=== PATIENT | female | born 1980 | race Two or more races ===

== ENCOUNTER 2016-05-19 23:14 | Emergency (ER) | payer OTHER ==
--- NOTE | ~2016-05-19 | CT4 ---
[facility]. [facility] A Service of [facility] & [facility] RADIOLOGY TEXT RESULTS PATIENT: AN LEYVA LOCATION: SED : 76 UNIT #: [id number] AGE: [address]: Hill Anaya MD SEX: F ORDER DR: [id number] [address] [address] [id number] MR#: [id number] Acc #: [id number] NAME: AN LEYVA : 1980 SEX: F STUDY DATE/TIME: 05/19/2016 23:30 UNIT: SED ROOM: STUDY DESCRIPTION: CT Abd and Pelv Wo Cont Attending Physician: Hill Anaya M.D. Ordering Physician: Hill Anaya M.D. Primary Care Physician: Reymundo Lynn M.D. MEDICAL IMAGING REPORT This report is preliminary unless electronic signature is present. EXAM CT abdomen and pelvis without IV contrast COMPARISON None. INDICATION 36-year-old female with right flank and back pain with frequent urination for [address] examination was performed with one or more of the following radiation dose reduction techniques: automatic exposure control, adjustment of mA and/or kV according to patient size, and iterative reconstruction. FINDINGS Axial CT imaging of the abdomen and pelvis was performed without IV contrast. Coronal and sagittal reformats were constructed. Lack of IV contrast limits evaluation of adenopathy, vasculature and viscera. Tiny fat-containing umbilical hernia. Trace bilateral pleural effusions. No acute fractures or suspicious osseous lesions. Unenhanced liver, gallbladder, pancreas, spleen, adrenal glands and kidneys are within normal limits. No hydronephrosis or hydroureter. No ureteral calculi. There are bilateral pelvic phleboliths. Urinary bladder is collapsed, limiting evaluation. Changes of hysterectomy are noted. No adnexal masses. No evidence of bowel obstruction. Trace free fluid in the pelvis. No pneumoperitoneum. Abdominal aorta is normal in course and caliber. Appendix is not definitively seen and may be surgically absent. There are a few pericecal lymph nodes, measuring up to 7 mm short axis, not pathologically enlarged by CT size criteria, and likely reactive. No adenopathy by CT size criteria. [facility] A Service of [facility] RADIOLOGY TEXT RESULTS PATIENT: AN LEYVA LOCATION: SED : [birth year] UNIT #: [id number] AGE: [address]: Hill Anaya MD SEX: F ORDER DR: IMPRESSION 1. Trace likely clinically insignificant pleural effusions. 2. Please note the appendix is not definitively seen but there are no secondary findings to suggest an acute appendicitis. The patient has had hysterectomy and correlation for possible history of appendectomy is recommended. 3. Trace free fluid in the pelvis possibly physiologic. No renal or ureteral calculi. Dictated by... Kobe Tan M.D. THIS IS AN ELECTRONICALLY VERIFIED REPORT Kobe Tan M.D. at 05/26/2016 8:13 PM JANETTE/dexter TD: 05/20/2016 06:10 JOB #: [id number] MEDICAL IMAGING REPORT
[2016-05-19 23:54] LABS: URINE SOURCE CLEAN CATCH
[2016-05-19 23:56] LABS: URINE APPEARANCE CLEAR; URINE BILIRUBIN NEG (NEG); URINE BLOOD TRACE-INTACT (NEG); URINE COLOR YELLOW; URINE GLUCOSE NEG (NORM); URINE KETONE NEG (NEG); URINE LEUKOCYTE ESTERASE NEG (NEG); URINE NITRATE NEG (NEG); URINE PROTEIN NEG (NEG)
[2016-05-20 00:01] LABS: EOSINOPHIL% 0.4 % (0.0-7.0); HEMATOCRIT 39.6 % (35.0-45.0); HEMOGLOBIN 12.7 gm/dL (12.0-16.0); LYMPHOCYTE# 0.4 X10e3 (1.0-3.5); LYMPHOCYTE% 6.6 % (17.0-45.0); MEAN CELL VOLUME 79.3 FL (83-96); MEAN CORPUSCULAR HEMOGLOBIN 25.4 PG (28-34); MEAN PLATELET VOLUME 11.8 FL (6.5-11.5); MONOCYTE# 0.3 X10e3 (0-1.0); MONOCYTE% 4.3 % (3.0-12.0); NEUTROPHIL# 5.3 X10e3 (1.5-7.1); NEUTROPHIL% 88.7 % (40-75); PLATELET COUNT 105 X10e3 (140-420); RED BLOOD COUNT 4.99 X10e (3.90-5.30); RED CELL DISTRIBUTION WIDTH 13.1 % (11.0-15.5)
[2016-05-20 00:02] LABS: MICRO INDICATED? YES
[2016-05-20 00:03] LABS: CULTURE INDICATED? YES; URINE BACTERIA NEG (NEG); URINE SQUAMOUS EPITHELIAL CELL OCCAS /[HPF]
[2016-05-20 00:05] LABS: DIFF IND NO
[2016-05-20 00:06] LABS: INR 1.1; PROTHROMBIN TIME (PATIENT) 12.4 SECONDS (9.5-12.4)
[2016-05-20 00:12] LABS: BLOOD UREA NITROGEN 11 mg/dL (9-23); BUN/CREATININE RATIO 13.75; CALCIUM SERUM 8.8 mg/dL (8.4-10.2); CARBON DIOXIDE 27 mmol/L (22-31); CHLORIDE 102 mmol/L (100-111); CREATININE SERUM 0.8 mg/dL (0.6-1.4); GLOM FILT RATE Estimated ABOVE60 mL/min (>60); GLUCOSE FASTING 123 mg/dL (70-110); POTASSIUM 3.7 mmol/L (3.5-5.1); SODIUM 136 mmol/L (135-145)
[2016-05-20 00:13] LABS: PARTIAL THROMBOPLASTIN TIME 26.3 SECONDS (25.6-38.1)
[2016-05-20 00:14] LABS: ALBUMIN SERUM 3.5 g/dL (3.5-5.0); BILIRUBIN, DIRECT 0.1 mg/dL (0.0-0.2); BILIRUBIN,INDIRECT 0.5 mg/dL (0.0-0.9); BILIRUBIN,TOTAL 0.6 mg/dL (0.2-2.0); PROTEIN TOTAL SERUM 7.2 g/dL (6.0-8.3)
== END 2016-05-20 01:57 | disposition home or self-care (01) ==
LOC: SED 23:14
PROVIDERS: Emergency Medicine
DX: N12 Tubulo-interstitial nephritis, not specified as acute or chronic (principal)
CPT/HCPCS: 36415; 74176; 80048; 80076; 81003; 85025; 85610; 85730; 87040; 87077; 87086; 87088; 87186; 96361; 96374; 96375; 99284; J0696; J2270; J2405